=== PATIENT | female | born 1970 | race Caucasian/White ===

== ENCOUNTER 2020-02-25 07:35 | Outpatient (CLI) | payer BC, SELFPAY ==
--- NOTE | ~2020-02-25 | US_ITS ---
US joint non vasc ltd RT 02/25/2020 08:08 Indication: Patient complains of superficial lump anterior kaur. Procedure: High-resolution ultrasound of the right anterior kaur in the area of palpable concern Comparison: No prior studies for comparison. Findings: Normal heterogeneous echotexture without focal solid or cystic mass. Impression: 1: Normal ultrasound of the right lower extremity in the area of palpable concern. No discrete mass i dentified. Reviewed, dictated and finalized at location A. Impression: 1: Normal ultrasound of the right lower extremity in the area of palpable nicki rn. No discrete mass identified.
== END 2020-02-25 07:36 | disposition home or self-care (01) ==
PROVIDERS: PCP Family Medicine; Visit Provider Family Medicine
DX: R22.41 Localized swelling, mass and lump, right lower limb (principal)
CPT/HCPCS: 76882

== ENCOUNTER 2022-02-24 01:54 | Day surgery (SDC) | payer BC, SELFPAY ==
[2022-02-07 12:53] VITALS: BMI 38.9
--- NOTE | 2022-02-24 09:25 | WPDANESEPPF ---
Anes - Initial Pre Proc Eval Procedure: Operation Date: 02/24/22 11:00 Proposed Procedures p Colonoscopy - Nelson Olivia MD Date/Time: 02/24/22 09:25 Surgeon: Nelson Olivia MD Pre Op Diagnosis: IBS, fecal incontinence, weight loss Patient Data Age: 51 Gender: F Height: 1.7 m Weight: 113 kg Allergies Allergy/AdvReac Type Severity Reaction Status Date / Time clindamycin Allergy Severe Diarrhea Verified 02/07/22 12:51 morphine Allergy Unknown Hives Verified 02/07/22 12:51 amoxicillin [From Augmentin] Allergy Hives Verified 02/07/22 12:51 clavulanic acid Allergy Hives Verified 02/07/22 12:51 [From Augmentin] Home Medications Medication Instructions Recorded Confirmed Type cholestyramine (with sugar) 4 gram 4 g PO BID #60 ea 01/30/22 02/07/22 Rx powder for susp in a packet (Questran) citalopram 30 mg capsule 30 mg PO DAILY 01/30/22 02/07/22 History clonazepam 1 mg tablet 1 mg PO DAILY 01/30/22 02/07/22 History dulaglutide 0.75 mg/0.5 mL 0.75 mg subcut WEEKLY 01/30/22 02/07/22 History subcutaneous pen injector (Trulicity) fluticasone propionate 50 1 spray intranasal DAILY 01/30/22 02/07/22 History mcg/actuation nasal spray,suspension (Flonase Allergy Relief) rifaximin 550 mg tablet (Xifaxan) 550 mg PO TID 14 days #42 tabs 01/30/22 02/07/22 Rx trazodone 100 mg tablet 100 mg PO .prn 01/30/22 02/07/22 History sodium sul 1.479 gram-potas ch See Rx Instructions PO PER PKG DIR 02/04/22 02/07/22 Rx 0.188 gram-magnes sul 0.225 gram #24 tabs tablet (Sutab) glimepiride 4 mg tablet 4 tablet PO DAILY 02/07/22 02/07/22 History progesterone micronized 100 mg 1 cap PO DAILY 02/07/22 02/07/22 History capsule Patient hx anesthesia problems: none Family hx anesthesia problems: none Results Review: All pre-operative results and documents have been reviewed as part of the pre-operative evaluation. FORMERLY [facility], [facility] Past Medical History Medical History (Updated 02/24/22 @ 09:26 by Jamarcus Tate DO) Anxiety Diabetes IBS (irritable bowel syndrome) Obesity Surgical History Surgical History (Updated 01/30/22 @ 15:36 by Syeda Shearer MA) H/O colectomy H/O hernia repair H/O rectal sphincterotomy Hx of tonsillectomy Family History Family History Other Diabetes mellitus Social History Social History Smoking status: Never smoker Second hand tobacco smoke exposure: Yes Alcohol intake: current Drinks per week: 1 Substance use type: marijuana Other substance usage details: Gummies- 2-5mg Living arrangements: with family Spiritual care concerns: No Anes - Eval Final PreProcedure Day of Procedure 02/24/22 09:25 Patient weight: obese Heart: regular rate and rhythm Lungs: clear to auscultation Airway: Mallampati scale class II Neurological: alert and oriented Last oral intake: >/= 8 hours ASA classification: III Emergent: no Anesthetic plan: proceed Anesthesia type and monitoring: general GIVS and standard monitoring Results Review: All pre-operative results and documents have been reviewed as part of the pre-operative evaluation. Informed Consent: The patient's anesthetic plan and its attendant risks and benefits were discussed with the patient/family/POA. Questions were solicited and answers provided to the satisfaction of the patient/family/POA.
[2022-02-24 10:02] LABS: Glucose Point of Care 352 mg/dl (65-105)
[2022-02-24 10:07] VITALS: BP 150/89; PULSE 20; RESP 20; TEMP 36.7; O2SAT 98; BMI 37.6
--- NOTE | 2022-02-24 10:09 | WPDHPUPDATE1 ---
History and Physical Update Update Date/Time: 02/24/22 10:09 History and Physical has been reviewed, including an updated exam of the patient. There are NO changes in the patient's condition. Risks, benefits, and alternatives have been discussed and questions answered. Patient agrees to proceed with procedure.
[2022-02-24] MEDS: LACTATED RINGERS 1,000 ML 150 ML IV CONT (10:11)
[2022-02-24 11:01] VITALS: BP 122/74; PULSE 95; RESP 20; O2SAT 99
[2022-02-24 11:11] VITALS: BP 121/75; PULSE 95; RESP 18; O2SAT 97
[2022-02-24 11:21] VITALS: BP 141/86; PULSE 89; RESP 22; O2SAT 99
== END 2022-02-24 11:23 | disposition home or self-care (01) ==
PROVIDERS: PCP Family Medicine; Visit Provider Internal Medicine Gastroenterology
PROC: 0DJD8ZZ Inspection of Lower Intestinal Tract, Via Natural or Artificial Opening Endoscopic (ICD-10-PCS; CPT 45378; principal; 2022-02-24 11:00)
DX: Z12.11 Encounter for screening for malignant neoplasm of colon (principal); D12.5 Benign neoplasm of sigmoid colon; R19.7 Diarrhea, unspecified; K57.30 Diverticulosis of large intestine without perforation or abscess without bleeding; K58.9 Irritable bowel syndrome, unspecified; R15.9 Full incontinence of feces; R63.4 Abnormal weight loss; R53.83 Other fatigue; Z90.49 Acquired absence of other specified parts of digestive tract; R10.9 Unspecified abdominal pain; R14.0 Abdominal distension (gaseous); F12.90 Cannabis use, unspecified, uncomplicated; E66.9 Obesity, unspecified; Z68.37 Body mass index [BMI] 37.0-37.9, adult
CPT/HCPCS: 45385; 45380; 82948; 88305; J2704; J7120

== ENCOUNTER 2022-03-28 12:08 | Outpatient (CLI) | payer BC, SELFPAY ==
[2022-03-28 12:34] LABS: Basophils Absolute Auto 0.1 K/mm3 (0.0-0.1); Basophils Percent Auto 0.5 % (0.2-1.2); Eosinophils Absolute Auto 0.2 K/mm3 (0-0.3); Eosinophils Percent Auto 1.5 % (0-4.4); Hematocrit 39.8 % (37.0-47.0); Hemoglobin 12.7 g/dL (12.0-15.0); Immature Granulocyte Absolute 0.33 K/mm3 (0.00-0.031); Immature Granulocyte Percent A 2.1 % (0-0.5); Lymphocytes Absolute Auto 4.15 K/mm3 (0.9-3.2); Mean Corpuscular HGB Conc 31.9 g/dl (32-36); Mean Corpuscular Hemoglobin 28.3 pg (26-34); Mean Corpuscular Volume 88.8 fl (80-100); Mean Platelet Volume 9.1 fl (7.4-10.4); Monocytes Absolute Auto 0.9 K/mm3 (0.1-0.6); Monocytes Percent Auto 5.6 % (2.6-8.5); Neutrophils Absolute Auto 9.8 K/mm3 (1.3-6.7); Neutrophils Percent Auto 63.3 % (45.5-73.1); Platelet Count Result 467 k/mm3 (150-375); Red Blood Count 4.48 M/mm3 (4.2-5.4); Red Cell Distribution Width 13.6 % (11.5-14.5); White Blood Count 15.4 K/mm3 (4.5-10.0)
[2022-03-28 12:43] LABS: Appearance Urine Clear (Clear); Bilirubin Urine Negative (Negative); Blood Urine Negative (Negative); Glucose Urine UA 3+ mg/dL (Negative); Ketones Urine Negative (Negative); Leukocyte Esterase Ur Negative LEU/UL (Negative); Nitrate Urine Negative (Negative); Protein Urine Negative (Negative); Specific Grav Ur 1.015 (1.001-1.035); Urobilinogen Urine 0.2 mg/dL (<2.0); pH Urine 6.5 (5.0-9.0)
[2022-03-28 12:46] LABS: Add Urine Microscopic? YES; Color Urine Light Yellow (Yellow)
[2022-03-28 12:51] LABS: Mucus Urine Rare /lpf; RBC Urine 0-2 /hpf (0-2); Squamous Epithelial Cell Urine Rare /hpf (Few); WBC Urine 0-3 /hpf
[2022-04-02 19:13] LABS: Tissue Transglutaminase IgA Ab <1.0 U/mL (<15.0)
[2022-04-03 15:30] LABS: Tissue Transglutaminase IgG Ab <1.0 U/mL (<15.0)
== END 2022-03-28 12:09 | disposition home or self-care (01) ==
LOC: ANHLAB 12:13
PROVIDERS: PCP Family Medicine; Visit Provider Nurse Practitioner
DX: R63.4 Abnormal weight loss (principal); R19.7 Diarrhea, unspecified; R19.5 Other fecal abnormalities; R15.9 Full incontinence of feces; R70.0 Elevated erythrocyte sedimentation rate; R79.82 Elevated C-reactive protein (CRP); D72.829 Elevated white blood cell count, unspecified
CPT/HCPCS: 36415; 81001; 83516; 85025; 85027

== ENCOUNTER 2022-04-24 07:52 | Outpatient (CLI) | payer BC, SELFPAY ==
--- NOTE | ~2022-04-24 | XR_ITS ---
EXAMINATION: XR small bowel follow through DATE: 04/24/2022 09:31 INDICATION: Diarrhea. Unspecified weight loss. TECHNIQUE: Supervisor Pastry radiograph(s) of the abdomen was/were obtained. Oral contrast was administered, and sequential radiographs of the abdomen were obtained until oral contrast was noted to be in the proxi mal colon. Spot fluoroscopic images of the small bowel were obtained. Fluoroscopy exposure time was 1 .3 minutes. A total of 6 overhead radiographs and 13 fluoroscopic images were recorded. COMPARISON: None. FINDINGS: Supervisor Pastry radiograph demonstrates multiple metallic coils project over the central abdomen consistent wit h prior ventral hernia repair. Transit time from the stomach to proximal colon was approximately 30 m inutes. There is normal caliber and mucosal fold pattern throughout the small bowel. Terminal ileum is normal. No tethering or abnormal mass effect observed upon the small bowel with real-time fluoros copy. IMPRESSION: 1. Normal small bowel follow-through with changes of prior ventral hernia repair. Reviewed, dictated and finalized at location A. IMPRESSION: 1. Normal small bowel follow-through with changes of prior ventral hernia fara gan
== END 2022-04-24 07:53 | disposition home or self-care (01) ==
LOC: ANHIMG 07:55
PROVIDERS: PCP Family Medicine; Visit Provider Nurse Practitioner
DX: R19.7 Diarrhea, unspecified (principal); R63.4 Abnormal weight loss; R15.9 Full incontinence of feces; R70.0 Elevated erythrocyte sedimentation rate; R19.5 Other fecal abnormalities
CPT/HCPCS: 74250

== ENCOUNTER → 2022-06-06 15:32 | Outpatient (CLI) | payer BC, SELFPAY ==
--- NOTE | ~2022-06-06 | XR_ITS ---
EXAMINATION: XR foot LT standing 2V DATE: 06/06/2022 16:05 INDICATION: Unspecified osteoarthritis, unspecified site. TECHNIQUE: 2 views of left foot standing were obtained. COMPARISON: Left ankle radiographs 11/21/2012 FINDINGS: Bone alignment is normal. No fracture. There is mild osteoarthritis of first metatarsophala ngeal joint and some of the interphalangeal joints and midfoot joints. There are enthesophytes at the posterior and plantar aspects of calcaneal tuberosity. IMPRESSION: 1. Mild polyarticular osteoarthritis. Reviewed, dictated and finalized at location A.
--- NOTE | ~2022-06-06 | XR_ITS ---
EXAMINATION: XR hand BI arthritis min 3V DATE: 06/06/2022 16:05 INDICATION: Unspecified osteoarthritis, unspecified site. TECHNIQUE: 4 views of right hand and 4 views of left hand on a total of 7 radiographs were obtained. COMPARISON: None. FINDINGS: RIGHT HAND: Bone alignment is normal. No fracture. There is a 5 mm nonaggressive lytic lesion in scap hoid that may be an enchondroma or subchondral cyst. There is mild osteoarthritis of first carpometac arpal joint and second distal interphalangeal joint. LEFT HAND: Bone alignment is normal. No fracture. There is mild osteoarthritis of first carpometacarp al joint and second distal interphalangeal joint. IMPRESSION: 1. Mild polyarticular osteoarthritis. Reviewed, dictated and finalized at location A.
--- NOTE | ~2022-06-06 | XR_ITS ---
EXAMINATION: XR sacroiliac joints min 3V DATE: 06/06/2022 16:05 INDICATION: Unspecified osteoarthritis, unspecified site. TECHNIQUE: 3 views of the sacroiliac joints were obtained. COMPARISON: None. FINDINGS: Bone alignment is normal. No fracture. There is mild osteoarthritis of the sacroiliac joint s. There is mild osteoarthrosis of the hips. Surgical clips overlie the abdomen. IMPRESSION: 1. Mild osteoarthritis of the sacroiliac joints. No evidence of inflammatory arthropathy. Reviewed, dictated and finalized at location A. IMPRESSION: 1. Mild osteoarthritis of the sacroiliac joints. No evidence of inflammatory ar thropathy.
--- NOTE | ~2022-06-06 | XR_ITS ---
EXAMINATION: XR chest 2V 06/06/2022 16:05 INDICATION: Dyspnea PROCEDURE: 2 view chest COMPARISON: No prior studies for comparison. FINDINGS: The lungs are clear. The cardiomediastinal silhouette is within normal limits. There are no pleural effusions. There is no pneumothorax suspected. IMPRESSION: 1: NO ACUTE CARDIOPULMONARY DISEASE. Reviewed, dictated and finalized at location B.
--- NOTE | ~2022-06-06 | XR_ITS ---
EXAMINATION: XR foot RT standing 2V DATE: 06/06/2022 16:05 INDICATION: Unspecified osteoarthritis, unspecified site. TECHNIQUE: 2 views of right foot were obtained. COMPARISON: None. FINDINGS: Bone alignment is normal. No fracture. There is mild osteoarthritis of talonavicular joint and some of the interphalangeal joints. There are enthesophytes at the posterior and plantar aspects of calcaneal tuberosity. IMPRESSION: 1. Mild polyarticular osteoarthritis. Reviewed, dictated and finalized at location A.
== END ==
PROVIDERS: PCP Family Medicine; Visit Provider Internal Medicine
DX: K58.0 Irritable bowel syndrome with diarrhea (principal); M19.90 Unspecified osteoarthritis, unspecified site; M19.042 Primary osteoarthritis, left hand; M19.041 Primary osteoarthritis, right hand; M47.898 Other spondylosis, sacral and sacrococcygeal region; M19.072 Primary osteoarthritis, left ankle and foot; M19.071 Primary osteoarthritis, right ankle and foot
CPT/HCPCS: 71046; 72202; 73130; 73620

== ENCOUNTER → 2022-07-21 10:11 | Outpatient (CLI) | payer OTHER, SELFPAY ==
--- NOTE | ~2022-07-21 | CT_ITS ---
EXAMINATION: CT abdomen pelvis w con INDICATION: Abnormal weight loss, abdominal pain. TECHNIQUE: Computed tomographic images of the abdomen and pelvis were obtained after the administrati on of 100 cc of Omnipaque 350 intravenous contrast. The dose-length product (DLP) was 1103.48 mGy-cm. Automated exposure control and iterative reconstruction technique were employed. COMPARISON: 07/10/2004 FINDINGS: Minimal dependent atelectasis is present in the lung bases. The heart size is normal. The l iver, spleen, pancreas, gallbladder, and adrenal glands are normal. The kidneys are unremarkable. No pathologically enlarged abdominal or pelvic lymph nodes are identified. There is no free intraperiton eal gas or evidence of bowel obstruction. There is a surgical anastomosis at the rectosigmoid junctio n. There are changes of mesh ventral hernia repair. IMPRESSION: 1. No CT correlate for the patient's symptoms. Reviewed, dictated and finalized at location F. ER
[2022-07-21 10:38] LABS: Estimated Glomerular Filt Rate > 60
== END ==
PROVIDERS: PCP Family Medicine; Visit Provider Nurse Practitioner
DX: K58.0 Irritable bowel syndrome with diarrhea (principal); R10.9 Unspecified abdominal pain; R63.4 Abnormal weight loss; R70.0 Elevated erythrocyte sedimentation rate; R79.82 Elevated C-reactive protein (CRP); Z90.49 Acquired absence of other specified parts of digestive tract
CPT/HCPCS: 74177; Q9967

== ENCOUNTER 2022-07-28 00:47 | Day surgery (SDC) | payer OTHER, SELFPAY ==
[2022-07-25 12:14] VITALS: BMI 38.5
--- NOTE | ~2022-07-28 | BM_ITS ---
EXAMINATION: CCL bone marrow asp w bx diag DATE: 07/28/2022 11:04 INDICATION: Multiple myeloma. TECHNIQUE: A time-out was performed to verify the patient's name, date of , and procedure to b e performed. The procedure including the risks, benefits, and alternatives was discussed with the pat ient. Risks discussed included bleeding and infection. The patient understood the risks and agreed to proceed. The skin overlying the left ilium was prepped and draped in usual sterile fashion. Anesth etic was administered with 1% lidocaine subcutaneously. 50 mcg fentanyl IV was given for pain control . An 11 gauge needle was inserted into the ilium with fluoroscopic guidance. Bone marrow was aspirat ed. An 8 gauge needle was then inserted into the ilium with fluoroscopic guidance. A core bone marrow biopsy was obtained. There were no immediate complications. Fluoroscopy exposure time was 0.1 minute s. The total number of images was 19. FINDINGS: Real-time fluoroscopy demonstrates a marker overlying the left posterior superior iliac spi ne. IMPRESSION: 1. Fluoro-guided bone marrow aspiration. 2. Fluoro-guided bone marrow core biopsy. Reviewed, dictated and finalized at location A. ING INSPECTOR
[2022-07-28 07:56] VITALS: BP 199/101; PULSE 80; RESP 11; TEMP 36.4; O2SAT 98; BMI 38.2
[2022-07-28 08:03] VITALS: BP 161/87
[2022-07-28 08:08] LABS: Basophils Absolute Auto 0.1 K/mm3 (0.0-0.1); Basophils Percent Auto 0.5 % (0.2-1.2); Eosinophils Absolute Auto 0.3 K/mm3 (0-0.3); Eosinophils Percent Auto 2.2 % (0-4.4); Hematocrit 40.1 % (37.0-47.0); Hemoglobin 13.1 g/dL (12.0-15.0); Immature Granulocyte Absolute 0.29 K/mm3 (0.00-0.031); Lymphocytes Absolute Auto 3.12 K/mm3 (0.9-3.2); Lymphocytes Percent Auto 21.3 % (18.3-44.2); Mean Corpuscular HGB Conc 32.7 g/dl (32-36); Mean Corpuscular Hemoglobin 29.1 pg (26-34); Mean Corpuscular Volume 89.1 fl (80-100); Mean Platelet Volume 9.2 fl (7.4-10.4); Monocytes Absolute Auto 0.8 K/mm3 (0.1-0.6); Monocytes Percent Auto 5.4 % (2.6-8.5); Neutrophils Absolute Auto 10.1 K/mm3 (1.3-6.7); Neutrophils Percent Auto 68.6 % (45.5-73.1); Platelet Count Result 511 k/mm3 (150-375); Red Cell Distribution Width 12.8 % (11.5-14.5); White Blood Count 14.7 K/mm3 (4.5-10.0)
--- NOTE | 2022-07-28 08:13 | SUR.PREOP ---
Dr. Braun at bedside talking with patient.
--- NOTE | 2022-07-28 08:17 | WPDMODSED ---
Moderate Sedation Note-Pt Data Patient Data Diagnosis: Multiple myeloma. Present Complaint: Multiple myeloma. Procedure to be performed/Plan: Fluoro-guided bone marrow biopsy of ilium. Allergies Allergy/AdvReac Type Severity Reaction Status Date / Time clindamycin Allergy Severe Diarrhea Verified 07/28/22 07:48 morphine Allergy Unknown Hives Verified 07/28/22 07:48 amoxicillin [From Augmentin] Allergy Hives Verified 07/28/22 07:48 clavulanic acid Allergy Hives Verified 07/28/22 07:48 [From Augmentin] Home Medications Medication Instructions Recorded Confirmed Type citalopram 30 mg capsule 30 mg PO DAILY 01/30/22 07/28/22 History clonazepam 1 mg tablet 1 mg PO DAILY 01/30/22 07/28/22 History dulaglutide 0.75 mg/0.5 mL 0.75 mg subcut WEEKLY 01/30/22 07/25/22 History subcutaneous pen injector (Trulicity) fluticasone propionate 50 1 spray intranasal DAILY 01/30/22 07/28/22 History mcg/actuation nasal spray,suspension (Flonase Allergy Relief) glimepiride 4 mg tablet 4 tablet PO DAILY 02/07/22 07/28/22 History progesterone micronized 100 mg 1 cap PO DAILY 02/07/22 07/28/22 History capsule eluxadoline 100 mg tablet (Viberzi) 100 mg PO BID #180 tabs 05/01/22 07/28/22 Rx rifaximin 550 mg tablet (Xifaxan) 550 mg PO DAILY #90 tabs 07/23/22 07/28/22 Rx aspirin 81 mg tablet,delayed 81 mg PO DAILY 07/25/22 07/28/22 History release meloxicam 15 mg tablet 15 mg PO DAILY #90 tabs 07/25/22 07/28/22 Rx levocetirizine 5 mg tablet (Xyzal) 5 mg PO DAILY 07/28/22 07/28/22 History lisinopril 2.5 mg tablet 2.5 mg PO DAILY 07/28/22 07/28/22 History Sedation/Anesthesia: No previous sedation/anesthesia problems (including family history). [facility] Past Medical History Medical History Abdominal pain Anxiety Diabetes Elevated erythrocyte sedimentation rate Elevated glucose High C-reactive protein IBS (irritable bowel syndrome) Inflammatory arthritis Irritable bowel syndrome with diarrhea Obesity Unintentional weight loss Weight loss Surgical History Surgical History H/O colectomy H/O hernia repair H/O rectal sphincterotomy Hx of tonsillectomy Family History Family History Other Diabetes mellitus Social History Social History Smoking status: Never smoker Second hand tobacco smoke exposure: Yes Alcohol intake: current Drinks per week: 1 Alcohol use details: occasional Substance use type: marijuana Other substance usage details: gummies Living arrangements: with roommate(s) Spiritual care concerns: No Mod Sed Physical Exam Physical Exam Pre Procedural Exam: Normal: Lungs, Heart Rate, Heart Rhythm and Abdomen Hours since solid foods: 12 Hours since liquid intake: 12 Mallampati Classification: class II Internal Medicine - PN: Obj Da Vital Signs Vital Signs: Vital Signs - 24 hr 07/28/22 07:56 07/28/22 08:03 Temperature 36.4 C Pulse Rate 80 Respiratory Rate 11 L Blood Pressure 199/101 H 161/87 H Pulse Oximetry 98 Oxygen Delivery Room Air Labs CBC & Chem 7: 07/28/22 07:46 Labs: Laboratory Results - last 24 hr 07/28/22 07:46 WBC 14.7 H RBC 4.50 Hgb 13.1 Hct 40.1 MCV 89.1 MCH 29.1 MCHC 32.7 RDW 12.8 Plt Count 511 H MPV 9.2 Immature Gran % (Auto) 2.0 H Neut % (Auto) 68.6 Lymph % (Auto) 21.3 [place] % (Auto) 5.4 Eos % (Auto) 2.2 Baso % (Auto) 0.5 Lymph # (Auto) 3.12 [place] # (Auto) 0.8 H Eos # (Auto) 0.3 Baso # (Auto) 0.1 Abs Immat Gran (auto) 0.29 H Absolute Neuts (auto) 10.1 H Absolute Nucleated RBC 0.0 Nucleated RBC % 0.0 ASA Classification/Sedation ASA Classification/Sedation ASA Class: II Emergent: No Risks: Risks, benefits and alternatives explained and patient/family accepted p
[2022-07-28 08:22] LABS: Prothrombin Time 12.9 Seconds (11.1-14.7)
[2022-07-28 09:16] VITALS: BP 175/90; PULSE 80; RESP 12; O2SAT 96
== END 2022-07-28 09:55 | disposition home or self-care (01) ==
PROVIDERS: PCP Family Medicine; Referring Provider Internal Medicine Hematology & Oncology; Visit Provider Radiology Diagnostic Radiology
DX: C90.00 Multiple myeloma not having achieved remission (principal); E11.9 Type 2 diabetes mellitus without complications; K58.0 Irritable bowel syndrome with diarrhea; F41.9 Anxiety disorder, unspecified; E66.9 Obesity, unspecified; Z68.38 Body mass index [BMI] 38.0-38.9, adult; F12.90 Cannabis use, unspecified, uncomplicated; Z79.899 Other long term (current) drug therapy; Z79.84 Long term (current) use of oral hypoglycemic drugs; Z79.82 Long term (current) use of aspirin
CPT/HCPCS: 36415; 38222; 85025; 85610; 88184; 88185; 88305; 88311; 88313; 88342; J1642; J3010; J7040

== ENCOUNTER 2022-08-05 09:28 | Outpatient (CLI) | payer OTHER, SELFPAY ==
--- NOTE | ~2022-08-05 | PE_ITS ---
EXAMINATION: PET skull to mid thigh DATE: 08/05/2022 11:28 INDICATION: Multiple myeloma. TECHNIQUE: Blood glucose level was 108 mg/dL. 9.532 mCi of 18-fluorodeoxyglucose (18-FDG) was adminis tered i.v. Low dose computed tomography (CT) images were acquired from the base of the brain to the p roximal thighs for attenuation correction and anatomic localization. Automated exposure control was e mployed. Dose-length product (DLP) was 923 mGy-cm. Positron emission tomography (PET) images were acq uired in the same distribution. COMPARISON: CT abdomen and pelvis 07/21/2022 FINDINGS: Head/neck: There is increased activity in the major salivary glands, oropharynx, oral cavity, and zachery ttis without abnormal CT correlate, likely physiologic. There are no pathologically enlarged lymph no robert. There is widespread increased activity in bone marrow without abnormal CT correlate. Chest: There is a 5 mm nodule in left lung upper lobe without increased activity, likely benign. No p leural effusion. There is left ventricular enlargement of the heart. There are coronary artery calcif ications. No pericardial effusion. There are no pathologically enlarged lymph nodes. There is widespr ead increased activity in bone marrow without abnormal CT correlate. Abdomen/pelvis/proximal thighs: The liver, gallbladder, spleen, pancreas, adrenal glands, and kidneys are normal. There are changes of mesh ventral hernia repair. There is an anastomosis in the sigmoid colon. There is diverticulosis of the colon without evidence of diverticulitis. There are no dilated loops of bowel. There are no pathologically enlarged lymph nodes. There is increased activity in norm al-sized bilateral inguinal lymph nodes, likely reactive. There is no free intraperitoneal fluid. The re is widespread increased activity in bone marrow without abnormal CT correlate. IMPRESSION: 1. Widespread increased activity in bone marrow without abnormal CT correlate, consistent with bone m arrow stimulation and/or multiple myeloma. Reviewed, dictated and finalized at location A. 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 Widespread increased activity in bone marrow without abnormal CT correlate, consistent with bone marrow stimulation and/or multiple myeloma.
[2022-08-05 09:51] LABS: Glucose Point of Care 108 mg/dl (65-105)
== END 2022-08-05 09:29 | disposition home or self-care (01) ==
PROVIDERS: PCP Family Medicine; Visit Provider Internal Medicine Hematology & Oncology
DX: C90.00 Multiple myeloma not having achieved remission (principal)
CPT/HCPCS: 78815; A9552

== ENCOUNTER 2022-08-07 09:00 | Outpatient (CLI) | payer OTHER, SELFPAY ==
--- NOTE | ~2022-08-07 | DEXA_ITS ---
Bone Density Report Name: RUDDY KNOWLES Age: 51 Sex: Female Ethnicity: White Date of : 1970 Indication: postmenopausal; cancer; Referring Provider: CY, YONI Garcia Study: Bone densitometry was performed. Exam Date: August 07, 2022 Accession number: [id number] Bone Density: Region BMD T-score Z-score Classification AP Spine(L1-L4) 1.098 0.5 1.2 Normal Femoral Neck (Left) 0.923 0.7 1.4 Normal Total Hip (Left) 1.139 1.6 2.1 Normal Femoral Neck (Right) 0.890 0.4 1.1 Normal Total Hip (Right) 1.075 1.1 1.5 Normal Total Hip Mean 1.107 1.4 1.8 Normal World Health Organization criteria for BMD impression classify patients as: Normal (T-score at or above -1.0), Osteopenia (T-score between -1.0 and -2.5), or Osteoporosis (T-score at or below -2.5). 10-year Fracture Risk: FRAX not reported because: All T-scores for Spine Total, Hip Total, Femoral Neck at or above -1.0 Clinical Information Provided by Patient: Has used the following medications: Vitamin D, progestrone Has the following medical conditions: Cancer, multiple myloma Patient maximum height was 67 Menopause Age: 47 No regular weight bearing exercise Drinks caffeinated beverages Onset of menses at age 12 Number of children 0 Impression: The patient has normal bone mass. Discussion: BONE DENSITY IS ABOVE THE MINIMUM DESIRABLE LEVEL AT ALL SKELETAL SITES TESTED. This patient?s bone mineral density is above the minimum desirable level (T-score -1.0 or better) at all sites measured. The patient should follow a healthful lifestyle (good nutrition with adequate calcium and vitamin D, and appropriate weight-bearing exercise). Follow-Up: Consider repeating this study in 5 years or sooner if there is some new clinical indication. Reported by: [facility] on 08/07/2022 9:31:00 AM. Reviewed, dictated and finalized at location AConstance CARTAGENA
== END 2022-08-07 09:01 | disposition home or self-care (01) ==
LOC: ANHIMG 09:02
PROVIDERS: PCP Family Medicine; Visit Provider Family Medicine
DX: Z78.0 Asymptomatic menopausal state (principal); Z79.899 Other long term (current) drug therapy
CPT/HCPCS: 77080

== ENCOUNTER → 2022-08-07 09:37 | Outpatient (CLI) | payer OTHER, SELFPAY ==
--- NOTE | ~2022-08-07 | XR_ITS ---
XR bone survey comp/metastic 08/07/2022 10:20 Indication: Multiple myeloma. Procedure: Bone survey performed. 32 images of the axial and appendicular skeleton as well as the sku ll. Comparison: Pet/CT dated 08/05/2022 Findings: No suspicious lytic or blastic lesions. No fracture or traumatic malalignment. There is ath erosclerosis. There is mild polyarticular osteoarthritis. Impression: 1: Unremarkable skeletal survey without evidence for suspicious focal lytic or blastic lesions. Reviewed, dictated and finalized at location A. OL SUPERVISOR Impression: 1: Unremarkable skeletal survey without evidence for suspicious focal lytic or blastic lesions.
== END ==
PROVIDERS: PCP Family Medicine; Visit Provider Internal Medicine Hematology & Oncology
DX: C90.00 Multiple myeloma not having achieved remission (principal)
CPT/HCPCS: 77075